=== PATIENT | female | born 1965 | race Two or more races ===

== ENCOUNTER 2017-12-15 16:36 | Emergency (ER) | payer OTHER ==
[~2017-12-15] VITALS: Ht 170.2 cm; Wt 77.1 kg
[2017-12-15] MEDS ORDERED: DICY20TA PO (19:56)
== END 2017-12-15 20:33 | disposition home or self-care (01) ==
LOC: ER 16:36
DX: T18.8XXA Foreign body in other parts of alimentary tract, initial encounter (principal); X58.XXXA Exposure to other specified factors, initial encounter; Y93.89 Activity, other specified; Y92.098 Other place in other non-institutional residence as the place of occurrence of the external cause; Y99.8 Other external cause status

== ENCOUNTER 2018-06-17 06:47 | Emergency (ER) | payer OTHER ==
[~2018-06-17] VITALS: Ht 170.2 cm; Wt 75.3 kg
[~2018-06-17 06:47] MED LIST: DICY20TA PO
[2018-06-17] MEDS ORDERED: LAMOTRIGINE (07:00)
[2018-06-17] MEDS ORDERED: GEODON60 MG (07:00)
[2018-06-17] MEDS ORDERED: BUSPIRONE HCL30 MG (07:01)
[2018-06-17] MEDS ORDERED: LIBRAX (07:01)
[2018-06-17] MEDS ORDERED: SYNTHROID175 MCG (07:02)
[2018-06-17] MEDS ORDERED: KLONOPIN (07:02)
[2018-06-17] MEDS ORDERED: PROZAC20 MG (07:02)
[2018-06-17] MEDS ORDERED: UNISOM50 MG (07:02)
[2018-06-17] MEDS ORDERED: RESTORIL (07:03)
== END 2018-06-17 12:05 | disposition home or self-care (01) ==
LOC: ER 06:47
DX: K29.00 Acute gastritis without bleeding (principal)

== ENCOUNTER 2018-08-05 15:58 | Emergency (ER) | payer OTHER ==
[~2018-08-05] VITALS: Ht 170.2 cm; Wt 74.8 kg
[~2018-08-05 15:58] MED LIST changes: +BUSPIRONE HCL30 MG; +GEODON60 MG; +KLONOPIN; +LAMOTRIGINE; +LIBRAX; +PROZAC20 MG; +RESTORIL; +SYNTHROID175 MCG; +UNISOM50 MG
[2018-08-05] MEDS ORDERED: PEPCID40 MG (16:49)
== END 2018-08-05 20:44 | disposition home or self-care (01) ==
LOC: ER 15:58
DX: B34.9 Viral infection, unspecified (principal)

== ENCOUNTER 2020-09-15 03:34 | Emergency (ER) | payer OTHER ==
[~2020-09-15] VITALS: Ht 170.2 cm; Wt 66.2 kg
[~2020-09-15 03:34] MED LIST changes: +PEPCID40 MG
[2020-09-15] MEDS ORDERED: MOBIC15 MG PO (05:06)
== END 2020-09-15 05:11 | disposition home or self-care (01) ==
LOC: ER 03:34
DX: S22.42XA Multiple fractures of ribs, left side, initial encounter for closed fracture (principal); W18.09XA Striking against other object with subsequent fall, initial encounter; Y93.89 Activity, other specified; Y92.018 Other place in single-family (private) house as the place of occurrence of the external cause; Y99.8 Other external cause status

== ENCOUNTER 2021-01-12 21:41 | Emergency (ER) | payer OTHER ==
[~2021-01-12] VITALS: Ht 167.6 cm; Wt 61.2 kg
[~2021-01-12 21:41] MED LIST changes: +MOBIC15 MG PO
[2021-01-12] MEDS ORDERED: CLONAZEPAM2 M1 (22:01)
[2021-01-12] MEDS ORDERED: LAMICTAL200 M1 (22:01)
[2021-01-12] MEDS ORDERED: PROZAC20 MG (22:01)
[2021-01-12] MEDS ORDERED: XANAX1 MG (22:02)
[2021-01-12] MEDS ORDERED: UNISOM25 MG (22:02)
[2021-01-12] MEDS ORDERED: RESTORIL30 M1 (22:02)
[2021-01-12] MEDS ORDERED: KETO10TA2 PO (23:02)
== END 2021-01-12 23:51 | disposition home or self-care (01) ==
LOC: ER 21:41
DX: S60.221A Contusion of right hand, initial encounter (principal); W23.0XXA Caught, crushed, jammed, or pinched between moving objects, initial encounter; Y93.89 Activity, other specified; Y92.89 Other specified places as the place of occurrence of the external cause; Y99.8 Other external cause status

== ENCOUNTER 2021-08-22 16:51 | Emergency (ER) | payer OTHER ==
[~2021-08-22] VITALS: Ht 167.6 cm; Wt 72.6 kg
[~2021-08-22 16:51] MED LIST changes: +CLONAZEPAM2 M1; +KETO10TA2 PO; +LAMICTAL200 M1; +RESTORIL30 M1; +UNISOM25 MG; +XANAX1 MG
[2021-08-22] MEDS ORDERED: NABUMETONE750 MG PO (20:55)
[2021-08-22] MEDS ORDERED: KETO10TA2 PO (20:55)
== END 2021-08-22 21:22 | disposition home or self-care (01) ==
LOC: ER 16:51
DX: S93.492A Sprain of other ligament of left ankle, initial encounter (principal); S80.02XA Contusion of left knee, initial encounter; W01.198A Fall on same level from slipping, tripping and stumbling with subsequent striking against other object, initial encounter; Y93.89 Activity, other specified; Y92.012 Bathroom of single-family (private) house as the place of occurrence of the external cause; Y99.8 Other external cause status

== ENCOUNTER 2024-07-19 20:14 | Emergency (ER) | payer OTHER ==
[~2024-07-19] VITALS: Ht 170.2 cm; Wt 86.2 kg
[~2024-07-19 20:14] MED LIST changes: +GEODON60 MG PO; +NABUMETONE750 MG PO; +SYNTHROID150 MCG PO; +VISTARIL50 MG/ML IM
[2024-07-19] MEDS ORDERED: SYNTHROID175 MCG PO (20:51)
[2024-07-19 20:52] VITALS: BP 129/87; O2SAT 97
[2024-07-19] MEDS ORDERED: FAMOTIDINE/PF 20 MG/2 ML VIAL IV PUSH STA (21:07)
[2024-07-19 22:12] LABS: HEMATOCRIT 43.1 % (36.0-45.00); HEMOGLOBIN 14.3 g/dL (12.0-15.00); MEAN CELL VOLUME 83.1 fL (80.00-100.00); MEAN CORPUSCULAR HEMOGLOBIN 27.5 pg (27.00-32.0); MEAN CORPUSCULAR HGB CONC 33.1 g/dl (32.0-36.0); PLATELET COUNT 311 K/uL (150-450); RED BLOOD COUNT 5.19 M/uL (4.00-6.00); RED CELL DISTRIBUTION WIDTH 13.3 % (11.5-14.5)
[2024-07-19 22:30] LABS: BILIRUBIN TOTAL 0.39 mg/dL (0.3-1.2); CALCIUM 8.9 mg/dL (8.5-10.1); CREATININE SERUM 0.89 mg/dL (0.55-1.02); GFR 65.37; GLOBULINA 3.5 G/DL (2.4-3.5); POTASSIUM 4.49 mEq/L (3.5-5.1); TOTAL PROTEIN 7.5 gm/dL (6.4-8.2)
[2024-07-20] MEDS ORDERED: KETOROLAC TROMETHAMINE 30 MG VIAL IM STA (00:01)
== END 2024-07-20 00:41 | disposition home or self-care (01) ==
LOC: ER 20:16
PROVIDERS: General Practice
DX: M54.89 Other dorsalgia (principal)

== ENCOUNTER 2024-09-30 11:09 | Emergency (ER) | payer OTHER ==
[~2024-09-30] VITALS: Ht 170.2 cm; Wt 97.5 kg
[~2024-09-30 11:09] MED LIST changes: +SYNTHROID175 MCG PO
[2024-09-30] MEDS ORDERED: RESTORIL30 M1 PO (11:42)
[2024-09-30] MEDS ORDERED: LEXAPRO20 MG PO (11:42)
[2024-09-30] MEDS ORDERED: ANASTROZOLE1 MG PO (11:43)
[2024-09-30] MEDS ORDERED: CHLORDIAZEPOXI1 EACH PO (11:43)
[2024-09-30 16:31] LABS: HEMATOCRIT 42.6 % (36.0-45.00); HEMOGLOBIN 14.1 g/dL (12.0-15.00); MEAN CELL VOLUME 81.4 fL (80.00-100.00); MEAN CORPUSCULAR HEMOGLOBIN 26.8 pg (27.00-32.0); PLATELET COUNT 293 K/uL (150-450); RED BLOOD COUNT 5.24 M/uL (4.00-6.00); RED CELL DISTRIBUTION WIDTH 15.1 % (11.5-14.5)
[2024-09-30] MEDS ORDERED: DEXAMETHASONE SODIUM PHOSPHATE 4 MG/ML VIAL IM STA (16:54)
[2024-09-30] MEDS ORDERED: ORPHENADRINE CITRATE 30 MG/ML AMPUL IM STA (16:54)
[2024-09-30 16:56] LABS: BILIRUBIN TOTAL 0.39 mg/dL (0.3-1.2); CALCIUM 9.3 mg/dL (8.5-10.1); CREATININE SERUM 0.94 mg/dL (0.55-1.02); GFR 61.38; GLOBULINA 3.7 G/DL (2.4-3.5); POTASSIUM 4.13 mEq/L (3.5-5.1); TOTAL PROTEIN 7.7 gm/dL (6.4-8.2)
[2024-09-30 16:57] LABS: BILIRUBIN TOTAL 0.45 mg/dL (0.3-1.2); BILIRUBIN,CONJUGATED 0.13 mg/dL (0.0-0.2); BILIRUBIN,UNCONJUGATED 0.32 mg/dL (0.0-0.6); TOTAL PROTEIN 7.8 gm/dL (6.4-8.2)
[2024-09-30] MEDS ORDERED: DUEXIS 800-26.1 EACH PO (18:50)
== END 2024-09-30 19:32 | disposition home or self-care (01) ==
LOC: ER 11:12
DX: R07.81 Pleurodynia (principal); R10.9 Unspecified abdominal pain